=== PATIENT | female | born 1985 ===

== ENCOUNTER → 2018-08-07 | Outpatient (CLI) | payer OTHER ==
[~2018-08-07] MED LIST: ASA-EC81 MG PO; FOLIC ACID1 MG PO; MILK OF MA400 MG/5 M PO; MINERAL OIL HEAV1 ML PO; SYNTHROID50 MCG PO
== END | disposition home or self-care (01) ==
LOC: PRENATAL 13:00
DX: O26.843 Uterine size-date discrepancy, third trimester (principal); O09.93 Supervision of high risk pregnancy, unspecified, third trimester; O99.89 Other specified diseases and conditions complicating pregnancy, childbirth and the puerperium

== ENCOUNTER 2018-08-16 08:12 | Inpatient (IN) | payer OTHER ==
[~2018-08-16] VITALS: Ht 175.3 cm; Wt 111.1 kg
[2018-08-16] MEDS ORDERED: ASA-EC81 MG PO (08:19)
[2018-08-16] MEDS ORDERED: SYNTHROID50 MCG PO (08:19)
[2018-08-16] MEDS ORDERED: FOLIC ACID1 MG PO (08:21)
[2018-08-16] MEDS ORDERED: MINERAL OIL HEAV1 ML PO (09:05)
[2018-08-16] MEDS ORDERED: MILK OF MA400 MG/5 M PO (09:07)
== END 2018-08-18 10:38 | DRG 807 ==
LOC: OBS/DEL 08:12 → LDR 08:46 → OBS/DEL 08:46 → OB/GYN 08:46
PROVIDERS: ADMIT Specialist
PROC: 10E0XZZ Delivery of Products of Conception, External Approach (ICD-10-PCS; principal; 2018-08-16)
PROC: 0HQ9XZZ Repair Perineum Skin, External Approach (ICD-10-PCS; 2018-08-16)
PROC: 4A0HXFZ Measurement of Products of Conception, Cardiac Rhythm, External Approach (ICD-10-PCS; 2018-08-16)
DX: O70.0 First degree perineal laceration during delivery (principal); Z37.0 Single live birth; Z3A.39 39 weeks gestation of pregnancy

== ENCOUNTER 2023-03-27 13:20 | Inpatient (IN) | payer OTHER ==
[~2023-03-27] VITALS: Ht 177.8 cm; Wt 3.2 kg
[2023-03-27] MEDS ORDERED: PRENATAL TABLE1 EAC1 PO (14:12)
[2023-03-27] MEDS ORDERED: NIFEDIPINE20 MG PO (14:12)
[2023-03-27 14:22] LABS: HEMATOCRIT 32.9 % (36.0-45.00); HEMOGLOBIN 11.2 g/dL (12.0-15.00); MEAN CELL VOLUME 90.6 fL (80.00-100.00); MEAN CORPUSCULAR HEMOGLOBIN 30.8 pg (27.00-32.0); MEAN CORPUSCULAR HGB CONC 33.9 g/dl (32.0-36.0); PLATELET COUNT 241 K/uL (150-450); RED BLOOD COUNT 3.64 M/uL (4.00-6.00); RED CELL DISTRIBUTION WIDTH 13.3 % (11.5-14.5)
[2023-03-27 14:25] LABS: PH,URINE 7.5 (5.0-8.0); URINE APPEARANCE Clear; URINE BILIRRUBIN Negative (NEGATIVE); URINE BLOOD Negative; URINE COLOR Yellow; URINE GLUCOSE Negative (NEGATIVE); URINE LEUKOCYTE Trace; URINE NITRATE Negative; URINE PROTEIN Negative (NEGATIVE); URINE UROBILINOGEN 0.2 E.U./dl
[2023-03-27 14:26] LABS: URINE EPITHELIAL CELLS 7.4 uL (0.0-38.8); URINE RBC 4.1 uL (0.0-20.8); URINE WBC 4.6 uL (0.0-23.2)
[2023-03-27 14:50] LABS: INR 0.96; PARTIAL THROMBOPLASTIN TIME 29.1 SECONDS (22.0-34.0); PROTHROMBIN TIME 10.1 SECONDS (9.0-11.5)
[2023-03-28 08:57] LABS: HEMATOCRIT 32.5 % (36.0-45.00); HEMOGLOBIN 10.8 g/dL (12.0-15.00); MEAN CELL VOLUME 90.8 fL (80.00-100.00); MEAN CORPUSCULAR HEMOGLOBIN 30.3 pg (27.00-32.0); MEAN CORPUSCULAR HGB CONC 33.3 g/dl (32.0-36.0); PLATELET COUNT 217 K/uL (150-450); RED BLOOD COUNT 3.58 M/uL (4.00-6.00); RED CELL DISTRIBUTION WIDTH 13.2 % (11.5-14.5)
== END 2023-03-30 13:41 | disposition home or self-care (01) | DRG 785 ==
LOC: O/R 13:20 → OB/GYN 13:20 → LDR 13:20 → O/R 16:40 → OB/GYN 19:10
PROVIDERS: ADMIT Specialist; ATTEND Specialist
PROC: 0UB70ZZ Excision of Bilateral Fallopian Tubes, Open Approach (ICD-10-PCS; 2023-03-27)
PROC: 4A1HXCZ Monitoring of Products of Conception, Cardiac Rate, External Approach (ICD-10-PCS; 2023-03-27)
PROC: 10D00Z1 Extraction of Products of Conception, Low, Open Approach (ICD-10-PCS; principal; 2023-03-27 17:45)
DX: O62.1 Secondary uterine inertia (principal); O69.89X0 Labor and delivery complicated by other cord complications, not applicable or unspecified; Z3A.37 37 weeks gestation of pregnancy; Z37.0 Single live birth; Z20.822 Contact with and (suspected) exposure to COVID-19; Z30.2 Encounter for sterilization